=== PATIENT | male | born 1950 | race Caucasian/White ===

== ENCOUNTER → 2018-05-21 09:45 | Outpatient (CLI) | payer MEDICARE, OTHER, SELFPAY ==
[2018-05-21 11:25] LABS: PSA,Total - Annual Screen 0.68 ng/mL (0.00-4.00)
== END ==
PROVIDERS: Family Provider Family Medicine; PCP Family Medicine; Visit Provider Urology
DX: Z12.5 Encounter for screening for malignant neoplasm of prostate (principal)
CPT/HCPCS: 36415; 84153; G0103

== ENCOUNTER 2018-10-05 10:00 | Outpatient (RCR) | payer MEDICARE, OTHER, SELFPAY ==
--- NOTE | 2018-07-20 11:07 | HP.PTEVAL_ITS ---
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 Date of Evaluation: 07/20/18 Physical Therapist: Gladys Vaughn - Visit Plan Frequency: 2-3x /Week Duration: 6 Weeks Plan: ++focus on ROM especially EXTENSION. 3X/ week for 4-6 weeks for R knee AROM, PROM, stretching, strengthening, gait training, functional activities such as stairs, stretching of HS and gastroc as well with HEP and ice as needed. - Subjective Subjective: Pt had R TKR s/p 07-10-2018. Planning on having L TKR on 08-21-18. Pt is using a front wheeled walker and been using it all the time. He has started to use the cane. He does not have to go up stairs and has a walk in shower. He reports that his knee ROM is not good. Has not been doing exercises at home (SAQ, ankle pumps). - Pain R knee pain Pain Intensity (Out of 10): 5 - Objective Gait: walks with front wheeled walker with I wtih decreased heel to to gait pattern and decreased heel first. Swithched to a straight can being in L hand and walked with. R knee extension:-18 degrees from full extension on the R. After so therapist OP with heel prop and QS he was able to get to -12 degrees from full extension. R knee flexion: 92 degrees. L knee: -4 degrees to 127 degrees L knee flexion. Stairs: Up with the R and down with the L to push ROM with B UE's on railing. Pt liked to lift self up so he did not have to bend the knee quite as much. He heavily used UE's on ascending the stairs as well. Tight gastroc and HS complex B - Goals Goal 1:: I HEP Goal Time Frame: 4-6 Weeks Goal 2:: Be able to go up and down stairs recip with 1 rail without hesitation Goal Time Frame: 4-6 Weeks Goal 3:: Increase R knee AROM 0 degrees extension to 120 degrees R knee flexion. Goal Time Frame: 4-6 Weeks Goal 4:: Walk with normal gait pattern without a cane Goal Time Frame: 4-6 Weeks Goal 5:: Decrease R knee pain to 0/10 with ADL's Goal Time Frame: 4-6 Weeks - Rehabilitation Potential Rehabilitation Potential: Good - Anticipated Interventions Patient/Client Instruction: Educate patient on: Condition Thank you for the opportunity to evaluate your patient. For Medicare and Medicare HMO plans, please review the plan of care and approve it. It will need to be FAXED BACK to us at [phone] for Medicare purposes. Please let me know if there are questions or concerns regarding this plan of care. Physician Signature: Date:
--- NOTE | 2018-08-17 10:38 | HP.PTREVAL ---
WOOD KIRAN, It has been my pleasure to treat ASIM DECKER over the last 11 visits for R TKR. Please see the progress note below for an update on the physical therapy plan of care! Subjective: Pt feels that he is doing pretty good. Says that last Monday was his best day. Objective/Function: Gait: Pt walks with decrease R knee extension decrease step length on the R and decrease heel strike on the L with a WIDER leah WITH GAIT. R knee AROM: -9 degrees from full extension and 114 degrees R knee flexion. Pt is able to go up and down stairs recip with a railing with slight hesitation. Plan Plan: Focus on Long sitting knee ext with gastroc stretching to stretchout posterior knee and encourage extension ROM. May try foam rolling. 3X/ week for 3 more weeks for R knee AROM, PROM, stretching, strengthening, gait training, functional activities such as stairs, stretching of HS and gastroc as well with HEP and ice as needed. Goals Goal 1:: I HEP Goal Time Frame: 4-6 Weeks Goal 2:: Be able to go up and down stairs recip with 1 rail without hesitation Goal Time Frame: 4-6 Weeks Goal Progress: Progressing Goal 3:: Increase R knee AROM 0 degrees extension to 120 degrees R knee flexion. Goal Time Frame: 4-6 Weeks Goal Progress: Progressing Goal 4:: Walk with normal gait pattern without a cane Goal Time Frame: 4-6 Weeks Goal Progress: Progressing Goal 5:: Decrease R knee pain to 0/10 with ADL's Goal Time Frame: 4-6 Weeks Goal Progress: Progressing Anticipated Interventions Patient/Client Instruction: Educate patient on: Condition Please do not hesitate to contact me at [phone] by phone or if you have questions or concerns regarding this new plan of care! Sincerely, Gladys Vaughn
--- NOTE | 2018-09-11 12:01 | HP.PTREVAL_ITS ---
WOOD KIRAN, It has been my pleasure to treat ASIM DECKER over the last 21 visits for R TKR. Please see the progress note below for an update on the physical therapy plan of care! Subjective: Pt reports no pain. Stairs are not good going up or down....his stairs are so steep at home and hand rails are not good so he does not go up and down stairs. Pt reports that he needs to get ready for having the other knee done for Dec 11. He reports that he can only walk a block because of his muscles in hips start to burn and he thinks that PT has helped some. Objective/Function: Stais: still weakness present with R knee ascending the stairs and still uses UE a lot to help ascend the stairs. R lnee AROM 120-and - 6 degrees from full extension. HS are extremenly tight on the R Plan Plan: 2X/ week for 3 weeks to push extension ROM, HS and gastroc foam rolling to see if can inhibit to increase ROM, concentric and eccentrric knee strength to help eas of using the stairs with HEP Goals Goal 1:: I HEP Goal Time Frame: 4-6 Weeks Goal Progress: Goal Met Goal 2:: Be able to go up and down stairs recip with 1 rail without hesitation Goal Time Frame: 4-6 Weeks Goal Progress: Progressing Goal 3:: Increase R knee AROM 0 degrees extension to 120 degrees R knee flexion. Goal Time Frame: 4-6 Weeks Goal Progress: Progressing Goal 4:: Walk with normal gait pattern without a cane Goal Time Frame: 4-6 Weeks Goal Progress: Progressing Goal 5:: Decrease R knee pain to 0/10 with ADL's Goal Time Frame: 4-6 Weeks Goal Progress: Goal Met Anticipated Interventions Patient/Client Instruction: Educate patient on: Condition Please do not hesitate to contact me at [phone] by phone or if you have questions or concerns regarding this new plan of care! Sincerely, Gladys Vaughn
--- NOTE | 2018-10-05 11:09 | HP.PTDCSUM ---
HP - PT D/C Summary It has been my pleasure to treat ASIM DECKER under orders from WOOD KIRAN, for the diagnosis of R TKR for a total of 25 visit(s). Discharge Date: 10/05/18 Please see the following information for a summary of their discharge status. - Subjective Subjective: Pt reports that he is doing well. Pt is doing well and will continue to exercises at home. He is - Pain R knee pain Pain Intensity (Out of 10): 0 - Overall Improvement % Improvement: 85 - Objective Objective/Function: 120 degrees R knee flexion. -6 degrees from full extension with self op AND roll under heel. Gait: walks with flexed trunk and no trunk rotation (previous back surgery) and with slight decreased stance time on the R leg. Stairs: walks up and down recip with 2 hand rails without hesitation. - Goals Goal 1:: I HEP Goal Progress: Goal Met Goal 2:: Be able to go up and down stairs recip with 1 rail without hesitation Goal Progress: Progressing Goal 3:: Increase R knee AROM 0 degrees extension to 120 degrees R knee flexion. Goal Progress: Progressing Goal 4:: Walk with normal gait pattern without a cane Goal Progress: Progressing Goal 5:: Decrease R knee pain to 0/10 with ADL's Goal Progress: Goal Met - Plan Plan: DC PT to HEP. Encouraged PT to find a bike to continue to use to keep legs mobile. - D/C Information Discharge Comments: DC PT to HEP and juliette galindo If there are questions or concerns regarding this patient's physical therapy, please feel free to call me at [phone]. Thank you for the referral of this patient. Sincerely, Gladys Vaughn
== END 2018-10-05 15:06 | disposition home or self-care (01) ==
LOC: PT 10:00
PROVIDERS: Family Provider Family Medicine; PCP Family Medicine
DX: Z98.890 Other specified postprocedural states (principal)
CPT/HCPCS: 97110; 97161; 97530

== ENCOUNTER 2019-02-15 10:30 | Outpatient (RCR) | payer MEDICARE, OTHER, SELFPAY ==
--- NOTE | 2018-12-26 11:54 | HP.PTEVAL ---
Patient's Visit Information ASIM DECKER is a 68 year old M referred to Physical Therapy by WOOD KIRAN with a diagnosis of L TKR s/p on 12-11-2018. Date of Evaluation: 12/26/18 Physical Therapist: DIANE Holley - Visit Plan Frequency: 3x /Week Duration: 3 Months Plan: 3X/ week for 3-12 weeks for L knee AROM, Strengthening, stretching, gait training, bed mobility, functional activities with HEP and ice as needed. - Subjective Findings: Pt had L TKR on 12-11-2018. Dr said that his L knee was just as bad as the R knee was. R TKR was 07-10-18. He got out of the hospital the day after surgery and twisted his knee the day after that. Pt reports that he twisted his L knee when he was turning in the bathroom and been more significantly more painful since and has been struggling to even stand up. He sees the Dr pérez. His has been helping him get up and down. He is not walking much at home, just to get up to go to the bathroom. He reports that it hurt so bad and he can only take so many percets. He says that his R knee hurts as well because he puts so much pressure on his R knee. He has stairs at home but does not use them. He has bars in his bathroom. He can not get out of a chair at this point by himself at this point and his helps him to roll over in bed or to get our of bed. He is struggling with lifting his leg up. He is not sleeping well... he goes to bed at 10 and wakes up at 1;00am. He says that walking around his L knee just hurts not sharp pain. He has no calf pain and not red, hot, swollen. He is not doing any exercises because it hurts so bad. - Pain L knee pain Pain Intensity (Out of 10): 5 Pain Intensity Range: 9 Comment: with walking and with pain pills. - Objective Gait: Sit to stand: Able with B. R knee AROM -5 degrees to 118 degrees. L knee AROM -11 degrees to 91 degrees - Goals Goal 1:: I HEP Goal Time Frame: 8-12 Weeks Goal 2:: Up and down stairs recip with 1 hand rail. Goal Time Frame: 8-12 Weeks Goal 3:: Increase L knee AROM.... -2 degrees from full extension and 120 degrees flexion Goal Time Frame: 8-12 Weeks Goal 4:: Walk with normal gait pattern without antalgic gait Goal Time Frame: 6-8 Weeks Goal 5:: Be able to get out of bed without assistance and up off the mat table without assistance. Goal Time Frame: 8-12 Weeks - Rehabilitation Potential Rehabilitation Potential: Good - Anticipated Interventions Patient/Client Instruction: Educate patient on: Plan of Care For the Purpose of:: To decrease pain, To decrease swelling/inflammation, To increase ROM, To improve nutrient delivery to tissue, To improve muscle performance and motor function, To improve ability to perform ADL's, To increase tolerance to activity/condition/position, To improve performance and independence with ADL's, To decrease level of supervision to perform tasks, To improve ability of physical actions for home/community/work/leisure, To improve gait and locomotor functions, To improve health of tissue, To decrease soft tissue restriction, To increase flexibility/ROM, To improve balance, To improve safety with gait Therapeutic Exercise to Include: Strength training, Flexibilty training, Gait and locomotor training, Passive ROM, Active ROM For the Purpose of:: To decrease pain, To decrease swelling/inflammation, To increase ROM, To improve nutrient delivery to tissue, To improve muscle performance and motor function, To improve ability to perform ADL's, To increase tolerance to activity/condition/position, To improve performance and independence with ADL's, To decrease level of supervision to perform tasks, To improve ability of physical actions for home/community/work/leisure, To improve gait and locomotor functions, To improve health of tissue, To decrease soft tissue restriction, To increase flexibility/ROM, To improve balance, To improve safety with gait Functional Training to Include: Gait training For the Purpose of:: To improve gait and locomotor functions, To improve safety with gait Manual Therapy Techniques to Include: Mobilization, Passive ROM, Soft tissue mobilization For the Purpose of:: To decrease pain, To increase ROM, To improve nutrient delivery to tissue, To improve muscle performance and motor function, To improve ability to perform ADL's Cryotherapy (ice pack, ice massage): Yes For the Purpose of:: To decrease pain, To decrease swelling/inflammation, To increase ROM, To improve nutrient delivery to tissue Thank you for the opportunity to evaluate your patient. For Medicare and Medicare HMO plans, please review the plan of care and approve it. It will need to be FAXED BACK to us at [phone] for Medicare purposes. For Medicare only, by signing this I certify the plan of care. Please let me know if there are questions or concerns regarding this plan of care. Physician Signature: Date:
--- NOTE | 2019-01-16 12:25 | HP.PTREVAL ---
WOOD KIRAN, It has been my pleasure to treat ASIM DECKER over the last 9 visits for L TKR s/p on 12-11-2018. Please see the progress note below for an update on the physical therapy plan of care! Subjective: Pt reports that he is better this week than last week. Pt reports that he is using his can pretty much all the time now. Objective/Function: -10 degrees to L knee flexion at 110 degrees. Gait: pt walks with L forefoot abduction when he walks without his cane. Pt is still having trouble getting up from a mat table Plan Plan: Encouraged pt to push ROM at home and sit with heel propped to gain more knee extension. Try and push ROM, and gait. 3X/ week for 3-12 weeks for L knee AROM, Strengthening, stretching, gait training, bed mobility, functional activities with HEP and ice as needed. Goals Goal 1:: I HEP Goal Time Frame: 8-12 Weeks Goal 2:: Up and down stairs recip with 1 hand rail. Goal Time Frame: 8-12 Weeks Goal 3:: Increase L knee AROM.... -2 degrees from full extension and 120 degrees flexion Goal Time Frame: 8-12 Weeks Goal 4:: Walk with normal gait pattern without antalgic gait Goal Time Frame: 6-8 Weeks Goal 5:: Be able to get out of bed without assistance and up off the mat table without assistance. Goal Time Frame: 8-12 Weeks Anticipated Interventions Patient/Client Instruction: Educate patient on: Plan of Care For the Purpose of:: To decrease pain, To decrease swelling/inflammation, To increase ROM, To improve nutrient delivery to tissue, To improve muscle performance and motor function, To improve ability to perform ADL's, To increase tolerance to activity/condition/position, To improve performance and independence with ADL's, To decrease level of supervision to perform tasks, To improve ability of physical actions for home/community/work/leisure, To improve gait and locomotor functions, To improve health of tissue, To decrease soft tissue restriction, To increase flexibility/ROM, To improve balance, To improve safety with gait Therapeutic Exercise to Include: Strength training, Flexibilty training, Gait and locomotor training, Passive ROM, Active ROM For the Purpose of:: To decrease pain, To decrease swelling/inflammation, To increase ROM, To improve nutrient delivery to tissue, To improve muscle performance and motor function, To improve ability to perform ADL's, To increase tolerance to activity/condition/position, To improve performance and independence with ADL's, To decrease level of supervision to perform tasks, To improve ability of physical actions for home/community/work/leisure, To improve gait and locomotor functions, To improve health of tissue, To decrease soft tissue restriction, To increase flexibility/ROM, To improve balance, To improve safety with gait Functional Training to Include: Gait training For the Purpose of:: To improve gait and locomotor functions, To improve safety with gait Manual Therapy Techniques to Include: Mobilization, Passive ROM, Soft tissue mobilization For the Purpose of:: To decrease pain, To increase ROM, To improve nutrient delivery to tissue, To improve muscle performance and motor function, To improve ability to perform ADL's Cryotherapy (ice pack, ice massage): Yes For the Purpose of:: To decrease pain, To decrease swelling/inflammation, To increase ROM, To improve nutrient delivery to tissue Please do not hesitate to contact me at [phone] by phone or if you have questions or concerns regarding this new plan of care! Sincerely, Gladys Vaughn MPT
--- NOTE | 2019-02-15 12:02 | HP.PTDCSUM ---
HP - PT D/C Summary It has been my pleasure to treat ASIM DECKER under orders from WOOD KIRAN, for the diagnosis of L TKR s/p on 12-11-2018 for a total of 20 visit(s). Discharge Date: 02/15/19 Please see the following information for a summary of their discharge status. - Subjective Subjective: Pt report sthat the Dr said to continue with his stretching on his own. Pt is going to get a memebership for a month to continuw with his strength and ROM - Pain L knee pain Pain Intensity (Out of 10): 1 - Overall Improvement % Improvement: 95 - Objective Objective/Function: Stairs: up and down stair recip with 2 hand rails. L knee AROM - 9 degrees from full extenson and 110 degrees knee flexion. Pt is able to get off the mat table with more ease. Gait still walks with flexed trunk and short stride - Goals Goal 1:: I HEP Goal 2:: Up and down stairs recip with 1 hand rail. Goal 3:: Increase L knee AROM.... -2 degrees from full extension and 120 degrees flexion Goal 4:: Walk with normal gait pattern without antalgic gait Goal 5:: Be able to get out of bed without assistance and up off the mat table without assistance. - Plan Plan: DC PT to HEP/I H&W program - D/C Information Discharge Comments: DC PT to HEP If there are questions or concerns regarding this patient's physical therapy, please feel free to call me at [phone]. Thank you for the referral of this patient. Sincerely, Gladys Vaughn, MPT
== END 2019-02-15 19:00 | disposition home or self-care (01) ==
LOC: PT 10:30
PROVIDERS: Family Provider Family Medicine; PCP Family Medicine
DX: Z96.652 Presence of left artificial knee joint (principal)
CPT/HCPCS: 97110; 97162; 97530

== ENCOUNTER → 2023-03-01 | Outpatient (CLI) | payer MEDICARE, OTHER, SELFPAY ==
--- NOTE | 2023-03-01 18:07 | CT_ITS ---
STUDY: CT ABDOMEN AND PELVIS WITH AND WITHOUT CONTRAST REASON FOR EXAM: Male, 72 years old. HEMATURIA RADIATION DOSAGE (If Supplied By Facility): CTDIvol = ( 21.93 ) mGy, DLP = ( 3046.74 ) mGycm TECHNIQUE: Transaxial images were obtained from the dome of the diaphragm to the symphysis pubis without oral contrast. ISOVUE 300 100 ML was administered. Sagittal and coronal images were reconstructed. Individualized dose optimization techniques were used for this CT. COMPARISON: None. FINDINGS: The visualized lung bases are unremarkable. The visualized portions of the heart are within normal limits. Normal liver. There is a solitary gallstone. Normal spleen. Normal pancreas. Normal bilateral adrenal glands. Normal right kidney with incidental small parapelvic cysts. Left kidney has a 4 cm peripherally calcified fluid density mass of the lower pole which does not enhance and is most consistent with a peripherally calcified cyst. Mild parapelvic cysts are noted. Otherwise unremarkable left kidney. Evaluation of the GI tract is limited by absence of oral contrast. Cannot exclude stomach wall thickening. No dilated loops of bowel or evidence for obstruction. Cannot exclude segmental thickening of the alberto of the small or large bowel. Cannot exclude enteritis or colitis. Moderate to marked diffuse fecal retention. Appendix within normal limits. Normal abdominal aorta. Normal inferior vena cava. Normal retroperitoneum. Normal urinary bladder. There is enlargement of the prostate gland. Bilateral small fat-containing inguinal hernias are seen. There are diffuse degenerative changes of the visualized lumbar spine. There is extensive posterior decompression surgery with posterior fixation between T12-S1. CT/CT Abd/Pelvis W/WO Contrast IMPRESSION: Bilateral parapelvic cysts. Peripherally calcified left lower pole cyst. Consider follow-up in one year. Moderate prostate enlargement. Electronically Signed: Joshua Whitney MD at 22:09 EDT ,
[2023-03-01 18:45] LABS: CREATININE FINGERSTICK 1.3 mg/dL (0.70-1.30)
== END | disposition home or self-care (01) ==
LOC: CT 18:05
PROVIDERS: PCP Family Medicine; Referring Provider Registered Nurse; Visit Provider Registered Nurse
DX: R31.0 Gross hematuria (principal)
CPT/HCPCS: 74178; Q9967

== ENCOUNTER → 2024-02-22 | Outpatient (CLI) | payer MEDICARE, OTHER, SELFPAY ==
[2024-02-22 15:55] LABS: PSA,Total - Annual Screen 1.01 ng/mL (0.00-4.00)
== END | disposition home or self-care (01) ==
PROVIDERS: PCP Hospitalist; Referring Provider Nurse Practitioner; Visit Provider Nurse Practitioner
DX: Z12.5 Encounter for screening for malignant neoplasm of prostate (principal)
CPT/HCPCS: 36415; 84153; G0103